=== PATIENT | female | born 1990 | race Asian ===

== ENCOUNTER 2019-04-18 07:29 | Emergency (ER) | payer OTHER ==
[~2019-04-18] VITALS: Ht 149.9 cm; Wt 46.7 kg
[2019-04-18 07:47] VITALS: Ht 149.9 cm; Wt 46.7 kg
[2019-04-18 08:21] LABS: BASOPHIL % 0.5 % (0-2); PLATELET COUNT 233 x10^3mcL (130-400); RED CELL DISTRIBUTION WIDTH 12.8 % (11.5-14.5)
[2019-04-18 08:24] LABS: CALCIUM 8.4 mg/dL (8.5-10.1); CARBON DIOXIDE 27.1 mmol/L (21-32); CHLORIDE SERUM 105 mmol/L (98-107); CREATININE SERUM 0.6 mg/dL (0.6-1.0); GFR1 > 60 mL/min; GLUCOSE SERUM 95 mg/dL (74-106); POTASSIUM SERUM 3.5 mmol/L (3.5-5.1); SODIUM SERUM 142 mmol/L (136-145)
[2019-04-18 08:37] LABS: ALBUMIN 4.2 g/dL (3.4-5.0); ALKALINE PHOSPHATASE 59 U/L (46-116); ALT/SGPT 18 U/L (14-59); AMYLASE 62 U/L (25-115); AST/SGOT 15 U/L (15-37); BILIRUBIN TOTAL 0.7 mg/dL (0.20-1.00); LIPASE 189 IU/L (73-393); T4(THYROXINE) 8.5 ug/dL (4.7-13.3); TOTAL PROTEIN, SERUM 7.7 g/dL (6.4-8.2)
[2019-04-18 08:42] LABS: C REACTIVE PROTEIN < 0.2 mg/dL (<=0.9)
[2019-04-18 10:50] VITALS: BP 123/77
== END 2019-04-18 10:50 | disposition home or self-care (01) ==
LOC: ED 07:29
PROVIDERS: Emergency Medicine
DX: F41.9 Anxiety disorder, unspecified (principal)
CPT/HCPCS: 36415; 86308; J7030; Q9967